=== PATIENT | female | born 2000 | race Caucasian/White ===

== ENCOUNTER 2020-03-21 00:25 | Emergency (ER) | payer MEDICAID ==
[~2020-03-21] VITALS: Ht 170.2 cm; Wt 49.4 kg
[2020-03-21 00:35] VITALS: BP 137/101
--- NOTE | 2020-03-21 00:38 | NUR ---
PT TAKEN TO BED 4
--- NOTE | 2020-03-21 00:42 | NUR ---
PT ASSESSMENT COMPLETE.
--- NOTE | 2020-03-21 00:50 | NUR ---
X-Ray at bedside.
--- NOTE | 2020-03-21 00:55 | NUR ---
Dr. Garcia examining patient.
[2020-03-21] MEDS ORDERED: IBUPROFEN 800 MG TAB PO ONE (01:00)
[2020-03-21 01:16] VITALS: BP 137/101
== END 2020-03-21 01:17 | disposition home or self-care (01) ==
LOC: MED 00:25
DX: S60.940A Unspecified superficial injury of right index finger, initial encounter (principal); V49.9XXA Car occupant (driver) (passenger) injured in unspecified traffic accident, initial encounter; Y93.89 Activity, other specified; Y92.89 Other specified places as the place of occurrence of the external cause; Y99.8 Other external cause status
CPT/HCPCS: 11740; 73140; 99284; Q0092; 99283